=== PATIENT | female | born 1980 | race Caucasian/White ===

== ENCOUNTER → 2017-05-16 | Outpatient (CLI) | payer OTHER | END | disposition home or self-care (01) | LOC: C.PAPS 10:30 | PROVIDERS: ATTEND Physician Assistant | DX: Z12.4 Encounter for screening for malignant neoplasm of cervix (principal) ==

== ENCOUNTER → 2017-05-19 | Outpatient (CLI) | payer OTHER | END | disposition home or self-care (01) | LOC: C.LABSPEC 13:07 | PROVIDERS: ATTEND Physician Assistant | DX: Z11.3 Encounter for screening for infections with a predominantly sexual mode of transmission (principal); Z11.8 Encounter for screening for other infectious and parasitic diseases ==

== ENCOUNTER 2022-08-02 01:40 | Inpatient (IN) ==
[2022-08-02] MEDS ORDERED: OXYTOCIN 30 UNITS/500 ML BAG IV PRN ×2 (02:36)
[2022-08-02] MEDS ORDERED: LIDOCAINE 1% LOCAL 20 ML VIAL INFIL PRN (02:36)
[2022-08-02] MEDS ORDERED: LACTATED RINGER'S 1,000 ML IV PRN (02:36)
--- NOTE | 2022-08-02 02:46 | History & Physical Report ---
Date of Service August 02, 2022 Assessment & Plan (1) Elderly multigravida, currently : Plan: Admit to L&D, EFM/toco. Labs. IV access. Patient would prefer to avoid intervention and epidural if at all possible. Discussed that I think this is reasonable at this point, given that her contractions have picked up since ROM. Discussed that if ctx space out or stop, would recommend pitocin for augmentation - she is agreeable to use this if necessary to avoid section. She is not planning for epidural. Would like to ambulate in halls. History of Present Illness Chief Complaint: labor Primary Care Provider: NO PCP 41yo @ 40 09/18, presents after gush of clear fluid at approx 7:30p. She was not feeling ctx at the time of ROM, but contrations have started to increase. + movement, no vaginal bleeding. with advanced maternal age. Allergies Allergy/AdvReac Type Severity Reaction Status Date / Time amoxicillin Allergy Unknown Verified 08/02/22 02:45 Penicillins Allergy Unknown Verified 08/02/22 02:45 Home Medications Medication Instructions Recorded Confirmed Type prenat.vits,wade,fzk-iofl-xgxmp 1 tab PO DAILY 12/21/20 08/02/22 History breast pump #1 ea 07/08/22 08/01/22 Rx Patient History Medical History (Updated 03/05/22 @ 07:13 by Sandra Jacobo) Bacterial vaginosis History of chicken pox Missed ab No pertinent past medical history Preventative health care Surgical History History of wisdom tooth extraction Family History (Updated 12/21/20 @ 10:55 by Tiffany Martinez RN) Grandmother (Paternal) Breast cancer Grandmother (Maternal) Cancer Brain Aunt Lung cancer Denies family history of Cervical cancer Ovarian cancer Prostate cancer Colorectal cancer Uterus cancer Social History (Updated 03/05/22 @ 09:53 by Sandra Jacobo) Smoking Status: Never smoker Second Hand Exposure: No; Hx Alcohol Use: Yes Hx Substance Use: No Preferred Language: Mongolian Visual Impairment: No Limitations Hearing Ability: Normal Beliefs That Will Affect Care: None marital status: marital status details: Lorenzo Goins (46) [phone] Current Living Situation: Spouse and Family Current Living Situation Comment: lives with spouse, 3 childen, 1 dog. 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 Feels Safe at Home: Yes Safety Concerns: Feels Safe At This Time Physical Activity Frequency: 5-6 Times per Week Review of Systems All systems reviewed & are unremarkable except as noted in HPI & below Physical Exam Physical Exam: T Cat 1 Deale Q 4-5 SVE 4/90/-1 +Nitrizine, grossly ruptured Exam per S Henry HUNT Constitutional: WD/WN, vitals as above Respiratory: normal respiratory effort, lungs clear to auscultation no respiratory distress Cardiovascular: Rate/Rhythm: regular rate and regular rhythm Gastrointestinal (Abdomen): Inspection/Auscultation: abdomen normal to inspection Percussion/Palpation: abdomen soft; abdomen nontender Gravid. No s/s chorio or abruption. Skin: no rashes, warm and dry Psychiatric: A+Ox3, euthymic affect Results & Data Vital Signs (Past 12 Hours) Vital Signs Pulse Resp BP 08/02/22 01:58 83 115/75 08/02/22 01:55 18 Coding Level of Care Code None Diagnoses Elderly multigravida, currently O09.529
[2022-08-02 03:51] LABS: Hemoglobin 12.2 g/dl (12.0-16.0); Mean Corpuscular Hgb Conc 34.9 g/dL (32.0-36.0); Mean Corpuscular Volume 88.8 fL (80.0-100.0); Mean Platelet Volume 10.1 fL (9.4-12.4); Platelet Count 194 K/uL (130-400); RDW Coefficient of Variation 11.7 % (11.5-14.5); Red Blood Count 3.94 M/uL (4.20-5.40); White Blood Count 8.98 K/ul (4.8-10.8)
[2022-08-02] MEDS: OXYTOCIN 30 UNITS/500 ML BAG IV PRN ×2 (06:31→07:05)
--- NOTE | 2022-08-02 06:39 | Delivery Summary ---
Vaginal Delivery Summary Date of Service August 02, 2022 Vaginal Delivery Summary [facility] Vaginal Delivery Summary: Pre-delivery diagnoses: 41yo @ 40 6/7, spontaneous labor, AMA Post-delivery diagnoses: same Procedure: spontaneous vaginal delivery Surgeon: Taylor Barker DO Complications: none Findings: Viable male . Apgars: 7/8. Weight pending, please see nursery records. Estimated blood loss: 200ml Description of delivery: The patient progressed to complete without anesthesia. She then began to push - most comfortable from the hands and knees position. She spontaneously vaginally delivered a viable from the cephalic presentation. The head delivered in OA position. The anterior shoulder delivered, followed by the posterior shoulder, followed by the body. The baby was placed on mother's abdomen and a spontaneous cry was heard. Delayed cord clamping was employed, and the cord was doubly clamped and cut. Cord blood was obtained. The placenta was delivered spontaneously intact with a 3-vessel cord. The uterus and vagina were swept of clots and debris. IV pitocin was given. The uterus became firm. The cervix, vagina, and perineum were inspected and no lacerations were noted. Excellent hemostasis was observed. The mother and baby are recovering in stable and good condition in the room. Sponge and instrument counts were correct x 2. Taylor Barker DO [facility] Vaginal Delivery Charge Vaginal Delivery Codes: 19432 global code for the antepartum, delivery, and post- Delivery Type Details: [facility]
[2022-08-02] MEDS ORDERED: DIPHTHERIA/TETANUS/PERTUSSIS 0.5mL SYR/VIAL (Age 7+yrs) IM ONE (06:40)
[2022-08-02] MEDS ORDERED: BENZOCAINE 20% AER SPR 82.5 GM CAN EXT PRN (06:40)
[2022-08-02] MEDS ORDERED: ACETAMINOPHEN 325 MG TAB PO PRN (06:40)
[2022-08-02] MEDS ORDERED: oxyCODONE/ACETAMINOPHEN 5mg/325mg TAB PO PRN (06:40)
[2022-08-02] MEDS ORDERED: IBUPROFEN 600 MG TAB PO PRN (06:40)
[2022-08-02] MEDS ORDERED: HYDROCORTISONE ACETATE 25 MG SUPP PR PRN (06:40)
[2022-08-02] MEDS: DOCUSATE SODIUM 100 MG CAP PO SCH ×2 (09:12→20:55)
[2022-08-02] MEDS: PRENATAL VITAMIN 1 TAB PO SCH (09:12)
--- NOTE | 2022-08-03 06:17 | Obstetrical Progress Note ---
Date of Service August 03, 2022 Assessment & Plan (1) Elderly multigravida, currently : Plan Steph is a 41 y/o female who is PPD #1 following delivery at 40 6/7 weeks. -Meeting all milestones -Vital signs reviewed and WNL -B+/GBS negative/Rubella Immune -Follow up for appointment in 6 weeks -Continue routine care -Plan to discharge today Admission and Anticipated Discharge Date Admission Date: August 02, 2022 Supervising Physician Co-Signing Physician Notes Resident Physician Supervision Note: I interviewed and examined the patient. Discussed with Dr. perez and agree with findings and plan as documented in the note. Any exceptions or clarifications are listed here: Doing well. Routine care. Desires d/c today. Instructions given. Documented By: Dona Hester MD, FACOG Subjective Steph is a 41 y/o female who is PPD #1 following delivery at 40 6/7 weeks. She reports feeling well overall this morning. Notes some abdominal cramping with breast feeding but pain well managed on analgesics. Voiding without issue. Tolerating meals overnight and able to ambulate some. Has some persistent lochia with some improvement this morning. Currently breast feeding. Review of Systems Constitutional: no fever, no chills and no sweats Respiratory: no cough, no dyspnea and no wheezing Cardiovascular: no chest pain, no palpitations and no calf pain Genitourinary: no dysuria Neurologic: no headache(s) Physical Exam Constitutional: WD/WN, vitals as above no acute distress Respiratory: no respiratory distress Auscultation: lungs clear to auscultation bilaterally; no rales, no rhonchi and no wheezes Cardiovascular: RRR, no murmur, no edema Extremities: no calf tenderness and no edema Negative Mahendra's sign bilaterally. Gastrointestinal (Abdomen): Inspection/Auscultation: normal bowel sounds Genitourinary: Uterine fundus firm, palpable below the umbilicus. Results & Data Vital Signs (Past 12 Hours) Vital Signs Temp Pulse Resp BP O2 Del Method 08/03/22 04:40 36.8 C 65 16 117/69 Room Air 08/03/22 02:29 36.8 C 57 L 18 129/81 Room Air 08/02/22 20:46 36.7 C 60 18 139/85 Resident Activity Tracking Resident Involvement: Resident Care Provided Care Provided: OB Delivery
[2022-08-03 07:11] LABS: Hemoglobin 12.3 g/dl (12.0-16.0)
[2022-08-03] MEDS: DOCUSATE SODIUM 100 MG CAP PO SCH (08:53)
[2022-08-03] MEDS: PRENATAL VITAMIN 1 TAB PO SCH (08:53)
[2022-08-03] MEDS ORDERED: bisacodyL 5 MG TABEC PO SCH (20:00)
[2022-08-04] MEDS ORDERED: bisacodyL 10 MG SUPP PR PRN
== END 2022-08-03 14:20 | disposition home or self-care (01) | DRG 807 ==
LOC: OPB 01:40 → 4S1 01:42 → 4E2 09:55